=== PATIENT | female | born 1975 | race Caucasian/White ===

== ENCOUNTER 2018-11-10 08:26 | Observation (INO) | payer BC ==
[2018-11-10] MEDS ORDERED: MIDAZOLAM 1 MG/ML 2 ML INJ (10:31)
[2018-11-10] MEDS ORDERED: ROPIVACAINE 0.5 % 30 ML VIAL (10:32)
[2018-11-10 11:47] LABS: ALANINE AMINOTRANSFERASE 16 IU/L (13-69); ALBUMIN 4.1 g/dl (3.3-4.9); ALBUMIN/GLOBULIN RATIO 1.17; ALKALINE PHOSPHATASE 34 IU/L (42-121); ANION GAP 6 (5-13); ASPARTATE AMINO TRANSFERASE 29 IU/L (15-46); BILIRUBIN,INDIRECT 0.3 mg/dl (0-1.1); BILIRUBIN,TOTAL 0.3 mg/dl (0.2-1.3); BLOOD UREA NITROGEN 12 mg/dl (7-20); CALCIUM 8.9 mg/dl (8.4-10.2); CARBON DIOXIDE 27 mmol/L (21-31); CHLORIDE 107 mmol/L (97-110); Estimated GFR > 60 mL/min (>60); GLUCOSE 84 mg/dl (70-220); POTASSIUM 4.4 mmol/L (3.5-5.1); SODIUM 140 mmol/L (135-144); TOTAL PROTEIN 7.6 g/dl (6.1-8.1)
[2018-11-10] MEDS: POLYMYXIN/BACITRACIN 1L IRRIG (11:47)
[2018-11-10] MEDS: ROPIVACAINE 0.5 % 30 ML VIAL (11:47)
[2018-11-10] MEDS ORDERED: PROPOFOL 20 ML (14:58)
[2018-11-10] MEDS ORDERED: LIDOCAINE 2% (SDV) 5 ML INJ (14:58)
[2018-11-10] MEDS ORDERED: CEFAZOLIN 1 GM INJ (14:58)
[2018-11-10] MEDS ORDERED: ROCURONIUM 50 MG INJ (14:58)
[2018-11-10] MEDS ORDERED: FAMOTIDINE 20 MG INJ (15:04)
[2018-11-10] MEDS ORDERED: ONDANSETRON 4 MG INJ ×2 (15:04→15:52)
[2018-11-10] MEDS ORDERED: KETOROLAC 30 MG INJ (15:37)
[2018-11-10] MEDS: SOD CHLORIDE 0.9% 1,000 ML IV (15:43)
[2018-11-10] MEDS ORDERED: HYDROmorphONE 1 MG/5 ML IV SYRINGE IV (16:00)
[2018-11-10] MEDS ORDERED: LEVALBUTEROL (NEB) 0.63 MG/3 ML AMP HHN (16:00)
[2018-11-10] MEDS ORDERED: EPHEDrine 25 MG/5 ML SYG IV (16:00)
[2018-11-10] MEDS ORDERED: OXYCODONE/ACETAMINOPHEN (5/325) TAB PO ×3 (16:00→21:30)
[2018-11-10] MEDS ORDERED: ALBUTEROL 0.083% (NEB) 2.5 MG/3 ML AMP HHN (16:00)
[2018-11-10] MEDS ORDERED: LABETALOL HCL 20MG INJ IV (16:00)
[2018-11-10] MEDS ORDERED: ONDANSETRON 4 MG INJ IV ×2 (16:00→21:30)
[2018-11-10] MEDS ORDERED: DIPHENHYDRAMINE 50 MG INJ IV (16:00)
[2018-11-10] MEDS ORDERED: ATROPINE 1 MG/10 ML SYRINGE IV (16:00)
[2018-11-10] MEDS ORDERED: hydrALAzine 20 MG INJ IV (16:00)
[2018-11-10] MEDS ORDERED: morphine 2 MG INJ IV ×2 (16:00)
[2018-11-10] MEDS ORDERED: FENTAnyl 50 MCG/ML VIAL IV (16:00)
[2018-11-10] MEDS: ONDANSETRON 4 MG INJ IV (16:16)
[2018-11-10] MEDS: FENTAnyl 50 MCG/ML VIAL IV ×2 (16:19→16:25)
[2018-11-10] MEDS: METOCLOPRAMIDE 10 MG INJ IV (16:32)
[2018-11-10] MEDS: HYDROmorphONE 1 MG/5 ML IV SYRINGE IV ×2 (16:54→17:09)
[2018-11-10] MEDS: NALBUPHINE HCL (10 MG/1 ML) INJ IV (17:24)
[2018-11-10] MEDS: PROCHLORPERAZINE 10 MG INJ IV (19:51)
[2018-11-10] MEDS: CEFAZOLIN 1 GM/50 ML (PMX) 50 ML IVPB (22:01)
[2018-11-10] MEDS: morphine 2 MG INJ IV (23:30)
[2018-11-10] MEDS: DEXTROSE 5%-0.45% NACL 1,000 ML IV (23:52)
[2018-11-11] MEDS: SOD CHLORIDE 0.9% 1,000 ML IV (01:43)
[2018-11-11] MEDS: morphine 2 MG INJ IV ×2 (03:23→07:51)
[2018-11-11] MEDS: CEFAZOLIN 1 GM/50 ML (PMX) 50 ML IVPB ×2 (08:42→14:15)
[2018-11-11] MEDS: OXYCODONE/ACETAMINOPHEN (5/325) TAB PO ×3 (09:43→17:57)
[2018-11-11] MEDS: RIVAROXABAN 10 MG TABLET PO (17:57)
== END 2018-11-11 18:20 | disposition home or self-care (01) ==
LOC: SDS 08:26 → MS1 21:41
DX: M25.371 Other instability, right ankle (principal); M24.071 Loose body in right ankle; M25.871 Other specified joint disorders, right ankle and foot
CPT/HCPCS: 27698; 73610-RT; 80053; 97161